=== PATIENT | male | born 1930 | race Caucasian/White ===

== ENCOUNTER 2017-04-26 05:30 | Inpatient (IN) | payer MEDICARE ==
[2017-04-26] VITALS (14 sets, daily range): BP systolic 120–227; BP diastolic 62–130; PULSE 76–103; RESP 20; TEMP 98.2–99.3; O2SAT 90–98
[2017-04-26] MEDS ORDERED: RESP: ALBUTEROL 2.5 MG/IPRATROPIUM 0.5 MG NEB (SCH) INH ONE (05:45)
[2017-04-26] MEDS ORDERED: SODIUM CHLORIDE 0.9% FLUSH 10 ML FLUSH IVF PRN (05:45)
[2017-04-26] MEDS ORDERED: NITROGLYCERIN 2% OINT 1 GM PACKET TOPICAL ONE (05:45)
[2017-04-26] MEDS: SODIUM CHLOR 0.9% 1000 ML INJ 1,000 ML IV SCH ×2 (05:49→17:40)
--- NOTE | 2017-04-26 05:51 | PD ---
HPI Chief Complaint: Respiratory Symptoms Time Seen by Provider: 05:37 Travel History International Travel<30 days: No Contact w/Intl Traveler<30days: No Traveled to known affect area: No History of Present Illness HPI 86-year-old male presents to the emergency department by EMS transport from local residence for evaluation of shortness of breath. Patient denies any fever. Patient states she has been treated for bronchitis 6 weeks with worsening symptoms today. Patient reports very congested cough but unable to cough up any sputum until this morning after forceful coughing noted some patel brown sputum. Patient had no fever or chills. Patient denies any chest pain or abdominal pain or flank pain. Patient is status post abdominal aortic aneurysm repair 2 years ago has history of hypertension and dyslipidemia. Patient states he has very high blood pressure each morning but after taking his medications for blood pressure management his blood pressure typically runs 110 over something. Patient had no lower extremity pain or swelling. Patient denies any calf pain. No history of clotting disorder. Patient takes aspirin daily. Patient recently traveled here from [place]. Pain 0/10. PFSH Past Medical History Narrative Medical Hypertension dyslipidemia bronchitis abdominal aortic aneurysm repair; no tobacco use; nursing notes reviewed Social History Tobacco Use: No Allergies-Medications (Allergen,Severity, Reaction): Coded Allergies: Sulfa (Sulfonamide Antibiotics) (Verified Allergy, Unknown, 04/26/17) Reported Meds & Prescriptions Reported Meds & Active Scripts Active Reported Isosorbide Dinitrate 30 Mg Tab 30 Mg PO DAILY Hydralazine (Hydralazine HCl) 100 Mg Tab 50 Mg PO BID Take with meals Furosemide 40 Mg Tab 40 Mg PO DAILY Carvedilol 12.5 Mg Tab 12.5 Mg PO BID Simvastatin 10 Mg Tab 10 Mg PO DAILY Aspirin 81 Mg Chew 81 Mg CHEW DAILY Narrative Medication Isosorbide hydralazine breo lasix carvedilol simvastatin Review of Systems Except as stated in HPI: all other systems reviewed are Neg General / Constitutional: No: Fever, Chills HENT: No: Congestion Cardiovascular: No: Chest Pain or Discomfort Respiratory: Positive: Cough, Shortness of Breath Gastrointestinal: No: Nausea, Vomiting, Abdominal Pain Genitourinary: No: Flank Pain Musculoskeletal: No: Myalgias, Arthralgias Skin: No Rash Neurologic: No: Weakness Psychiatric: No: Anxiety Endocrine: No: Heat Intolerance Hematologic/Lymphatic: No: Easy Bruising Physical Exam Narrative GENERAL: Well-developed well-nourished elderly male in no acute respiratory distress with marked hypertension SKIN: Warm and dry. HEAD: Normocephalic. EYES: No scleral icterus. No injection or drainage. NECK: Supple, trachea midline. No JVD or lymphadenopathy. CARDIOVASCULAR: Regular rate and rhythm without murmurs, gallops, or rubs. RESPIRATORY: Breath sounds equal bilaterally with rhonchi right middle and lower lobes. No accessory muscle use. GASTROINTESTINAL: Abdomen soft, non-tender, nondistended. MUSCULOSKELETAL: No cyanosis, or edema. BACK: Nontender without obvious deformity. No CVA tenderness. Data Data Last Documented VS Vital Signs Date Time Temp Pulse Resp B/P (MAP) Pulse Ox O2 Delivery O2 Flow Rate FiO2 04/26/17 07:31 101 20 92 Nasal Cannula 2.00 04/26/17 07:30 98.9 178/85 (116) Orders Orders Complete Blood Count With Diff (04/26/17 05:37) Basic Metabolic Panel (Bmp) (04/26/17 05:37) B-Type Natriuretic Peptide (04/26/17 05:37) Act Partial Throm Time (Ptt) (04/26/17 05:37) Prothrombin Time / Inr (Pt) (04/26/17 05:37) Magnesium (Mg) (04/26/17 05:37) Ckmb (Isoenzyme) Profile (04/26/17 05:37) Troponin I (04/26/17 05:37) Influenzae A/B Antigen (04/26/17 05:37) Blood Culture (04/26/17 05:37) Iv Access Insert/Monitor (04/26/17 05:37) Electrocardiogram (04/26/17 05:37) Ecg Monitoring (04/26/17 05:37) Oximetry (04/26/17 05:37) Oxygen Administration (04/26/17 05:37) Chest, Single Ap (04/26/17 05:37) Ct Pulmonary Angiogram (04/26/17 05:37) Sodium Chloride 0.9% Flush (Ns Flush) (04/26/17 05:45) Albuterol-Ipratropium Neb (Duoneb Neb) (04/26/17 05:45) Sputum Culture And Gram Stain (04/26/17 05:37) Sodium Chlor 0.9% 1000 Ml Inj (Ns 1000 M (04/26/17 05:45) Nitroglycerin 2% Oint (Nitroglycerin 2% (04/26/17 05:45) Ceftriaxone Inj (Rocephin Inj) (04/26/17 06:00) Azithromycin Inj (Zithromax Inj) (04/26/17 06:00) Labetalol Inj (Trandate Inj) (04/26/17 06:45) Furosemide Inj (Lasix Inj) (04/26/17 06:45) Iohexol 350 Inj (Omnipaque 350 Inj) (04/26/17 07:01) Urinary Catheter Insert/Apply (04/26/17 07:04) Oseltamivir (Tamiflu) (04/26/17 07:45) Aspirin Chew (Aspirin Chew) (04/26/17 07:45) Admit Order (Ed Use Only) (04/26/17 ) Floor Service Worker Spring / Telemetry MALIA.Q8H (04/26/17 07:34) Diet Heart Healthy (04/26/17 Breakfast) Activity Oob With Assistance (04/26/17 07:34) Notify Dr: Other (04/26/17 07:34) Labs Laboratory Tests Test 04/26/17 05:55 White Blood Count 4.2 TH/MM3 Red Blood Count 2.58 MIL/MM3 Hemoglobin 8.9 GM/DL Hematocrit 27.9 % Mean Corpuscular Volume 108.0 FL Mean Corpuscular Hemoglobin 34.6 PG Mean Corpuscular Hemoglobin Concent 32.0 % Red Cell Distribution Width 15.3 % Platelet Count 181 TH/MM3 Mean Platelet Volume 9.0 FL Neutrophils (%) (Auto) 48.2 % Lymphocytes (%) (Auto) 33.1 % Monocytes (%) (Auto) 18.1 % Eosinophils (%) (Auto) 0.2 % Basophils (%) (Auto) 0.4 % Neutrophils # (Auto) 2.0 TH/MM3 Lymphocytes # (Auto) 1.4 TH/MM3 Monocytes # (Auto) 0.8 TH/MM3 Eosinophils # (Auto) 0.0 TH/MM3 Basophils # (Auto) 0.0 TH/MM3 CBC Comment DIFF FINAL Differential Comment Prothrombin Time 11.3 SEC Prothromb Time International Ratio 1.1 RATIO Activated Partial Thromboplast Time 25.1 SEC Blood Urea Nitrogen 19 MG/DL Creatinine 1.20 MG/DL Random Glucose 111 MG/DL Calcium Level 8.4 MG/DL Magnesium Level 2.3 MG/DL Sodium Level 139 MEQ/L Potassium Level 3.9 MEQ/L Chloride Level 105 MEQ/L Carbon Dioxide Level 29.3 MEQ/L Anion Gap 5 MEQ/L Estimat Glomerular Filtration Rate 57 ML/MIN Total Creatine Kinase 67 U/L Troponin I LESS THAN 0.02 NG/ML B-Type Natriuretic Peptide 389 PG/ML MDM Medical Decision Making Medical Screen Exam Complete: Yes Emergency Medical Condition: Yes Medical Record Reviewed: Yes Interpretation(s) EKG: Normal sinus rhythm rate 94 left atrial enlargement QS inferiorly age- indeterminate no acute ST elevation marked artifact present at baseline Influenza a/b ag: (A+) CT pulmonary angiogram: CONCLUSION: 1. No evidence of pulmonary embolism. 2. Bilateral patchy subsegmental airspace disease and central airway disease most characteristic of bronchitis and peribronchial pneumonia. Followup until clearing recommended to exclude possible underlying mass. 3. Bilateral pleural thickening worse on the right. 4. Moderate cardiomegaly. Leobardo Avila MD on April 26, 2017 at 7:18 Board Certified Radiologist. This report was verified electronically. CBC & BMP Diagram 04/26/17 05:55 Calcium Level 8.4 L, Magnesium Level 2.3 Vital Signs Date Time Temp Pulse Resp B/P (MAP) Pulse Ox O2 Delivery O2 Flow Rate FiO2 04/26/17 07:16 103 20 181/101 (127) 92 Nasal Cannula 2.00 04/26/17 06:51 92 20 192/100 (130) 92 04/26/17 06:23 94 20 92 Nasal Cannula 2.00 04/26/17 06:21 88 20 207/94 (131) 94 04/26/17 06:11 84 Nasal Cannula 2.00 04/26/17 06:11 94 20 207/84 (125) 94 Nasal Cannula 2.00 04/26/17 05:55 92 20 227/130 (162) 92 04/26/17 05:47 96 Nasal Cannula 2.00 Differential Diagnosis Cough, pneumonia, bronchitis, CHF, PE, ACS, PR, dissection, influenza Narrative Course Patient administer DuoNeb updraft maintenance IV fluids Nitropaste 1 inch to chest wall applied chest x-ray ordered EKG performed shows sinus rhythm without acute ST elevation or injury pattern QS noted inferiorly age-indeterminate. Patient administered Nitropaste to chest wall with some improvement of blood pressure as well as labetalol 10 mg IV Flu test is positive patient given Tamiflu as well as Rocephin and azithromycin for community-acquired pneumonia Chest x-ray shows patchy infiltrate and some vascular congestion with cardiomegaly Cardiac enzymes troponin I and CK are found to be in normal range with elevation of the BMP Patient has a total white cell count of 4200 consistent with influenza diagnosis however also noted to have some anemia Patient sent for CT pulmonary angiogram and negative for PE but consistent with patchy peribronchial pneumonia Patient's case discussed with on-call physician Dr. Dick who accepts patient for admission Patient and family aware of lab results diagnosis and plan for admission. Physician Communication Physician Communication call placed to [facility] Diagnosis Primary Impression: Influenza A Additional Impressions: CHF (congestive heart failure) Qualified Codes: I50.9 - Heart failure, unspecified HTN (hypertension) Qualified Codes: I10 - Essential (primary) hypertension Peribronchial pneumonia Anemia Admitting Information Admitting Physician Requests: Admit Eliana Fontenot MD Apr 26, 2017 05:51
[2017-04-26] MEDS ORDERED: cefTRIAXone INJ 2,000 MG in SODIUM CHLORIDE 0.9% INJ 100 ML IV ONE (06:00)
[2017-04-26] MEDS ORDERED: AZITHROMYCIN INJ 500 MG in SODIUM CHLOR 0.9% 250 ML INJ 250 ML IV ONE (06:00)
[2017-04-26 06:10] LABS: BASOPHIL % 0.4 % (0.0-2.0); EOSINOPHIL % 0.2 % (0.0-4.0); HEMATOCRIT 27.9 % (39.0-51.0); HEMOGLOBIN 8.9 GM/DL (13.0-17.0); LYMPH % 33.1 % (9.0-44.0); LYMPHOCYTE # 1.4 TH/MM3 (1.0-4.8); MEAN CORPUSCULAR HEMOGLOBIN 34.6 PG (27.0-34.0); MONO % 18.1 % (0.0-8.0); MONOCYTE # 0.8 TH/MM3 (0-0.9); NEUT % 48.2 % (16.0-70.0); PLATELET COUNT 181 TH/MM3 (150-450); RED BLOOD COUNT 2.58 MIL/MM3 (4.50-5.90); RED CELL DISTRIBUTION WIDTH 15.3 % (11.6-17.2); WHITE BLOOD COUNT 4.2 TH/MM3 (4.0-11.0)
[2017-04-26 06:21] LABS: CHLORIDE 105 MEQ/L (98-107); SODIUM (NA) 139 MEQ/L (136-145)
[2017-04-26 06:24] LABS: BICARBONATE 29.3 MEQ/L (21.0-32.0); BLOOD UREA NITROGEN 19 MG/DL (7-18); CALCIUM 8.4 MG/DL (8.5-10.1); GLUCOSE,RANDOM 111 MG/DL (74-106); MAGNESIUM 2.3 MG/DL (1.5-2.5)
[2017-04-26 06:25] LABS: INTERNATIONAL NORMALIZED RATIO 1.1 RATIO; PROTHROMBIN TIME - PATIENT 11.3 SEC (9.8-11.6)
[2017-04-26 06:28] LABS: GLOMERULAR FILTRATION RATE 57 ML/MIN (>89)
[2017-04-26 06:32] LABS: TROPONIN I LESS THAN 0.02 NG/ML (0.02-0.05)
[2017-04-26] MEDS ORDERED: SIMV10TA PO (06:43)
[2017-04-26] MEDS ORDERED: CARV12.52 PO (06:43)
[2017-04-26] MEDS ORDERED: ISOS30TA17 PO (06:43)
[2017-04-26] MEDS ORDERED: FURO40TA PO (06:43)
[2017-04-26] MEDS ORDERED: HYDR-3801 PO (06:43)
[2017-04-26] MEDS ORDERED: ASPI-516 CHEW (06:43)
[2017-04-26] MEDS ORDERED: LABETALOL HCL 100 MG/20 ML VIAL IV PUSH ONE (06:45)
[2017-04-26] MEDS ORDERED: FUROSEMIDE 40 MG/4 ML VIAL IV PUSH ONE (06:45)
--- NOTE | 2017-04-26 06:45 | RADRPT ---
EXAM DATE/TIME: 04/26/2017 06:09 [facility] COMPARISON: No previous studies available for comparison. INDICATIONS : Shortness of breath starting today MEDICAL HISTORY : Cardiovascular disease. Hypertension SURGICAL HISTORY : None. ENCOUNTER: Initial ACUITY: 1 day PAIN SCORE: 0/10 LOCATION: Bilateral chest FINDINGS: Mild cardiomegaly. There is some patchy infiltrates in the left perihilar region without consolidati on. Both hemidiaphragms are well delineated. The upper lungs are clear. CONCLUSION: Patchy non-consolidative infiltrates in the left infrahilar region. Saqib Lees MD on April 26, 2017 at 6:43 Board Certified Radiologist. This report was verified electronically.
[2017-04-26] MEDS ORDERED: IOHEXOL 350 MG/ML 10 ML VIAL (for RAD DIAG) IVCONTRAST ONE (07:01)
--- NOTE | 2017-04-26 07:26 | RADRPT ---
EXAM DATE/TIME: 04/26/2017 06:57 [facility] COMPARISON: No previous studies available for comparison. INDICATIONS : Shortness of breath; rule out pulmonary embolus. IV CONTRAST: 75 cc Omnipaque 350 (iohexol) IV RADIATION DOSE: 20.08 CTDIvol (mGy) MEDICAL HISTORY : None SURGICAL HISTORY : None. ENCOUNTER: Initial ACUITY: 1 day PAIN SCALE: 0/10 LOCATION: chest TECHNIQUE: Volumetric scanning of the chest was performed using a pulmonary embolism protocol MIP images were re constructed. Using automated exposure control and adjustment of the mA and/or kV according to patien t size, radiation dose was kept as low as reasonably achievable to obtain optimal diagnostic quality images. DICOM format image data is available electronically for review and comparison. Follow-up recommendations for detected pulmonary nodules are based at a minimum on nodule size and pa tient risk factors according to Fleischner Society Guidelines. FINDINGS: PULMONARY ARTERIES: No filling defects are seen in the pulmonary arteries through the segmental level. LUNGS: Significant central airway disease with peribronchial thickening and opacity are noted. There are pat sergio subsegmental airspace opacities throughout both lungs PLEURAE: Bilateral pleural thickening is identified. There is lobulated pleural thickening along the right lat eral and posterior pleural margins which measures up to 11 mm in thickness. MEDIASTINUM: The heart is moderately enlarged. Mild coronary calcification is noted. There is no evidence of mass or lymphadenopathy. MUSCULOSKELETAL: No acute bony abnormality. MISCELLANEOUS: The visualized upper abdominal organs demonstrate no acute abnormality. CONCLUSION: 1. No evidence of pulmonary embolism. 2. Bilateral patchy subsegmental airspace disease and central airway disease most characteristic of b ronchitis and peribronchial pneumonia. Followup until clearing recommended to exclude possible underl goldie mass. 3. Bilateral pleural thickening worse on the right. 4. Moderate cardiomegaly. Leobardo Avila MD on April 26, 2017 at 7:18 Board Certified Radiologist. This report was verified electronically.
[2017-04-26] MEDS ORDERED: OSELTAMIVIR PHOSPHATE 75 MG CAP PO ONE (07:45)
[2017-04-26] MEDS ORDERED: ASPIRIN 81 MG CHEW TAB CHEW ONE (07:45)
[2017-04-26] MEDS ORDERED: NALOXONE HCL 0.4 MG/ML AMP IV PUSH PRN (08:00)
[2017-04-26] MEDS ORDERED: SODIUM CHLORIDE 0.9% FLUSH 10 ML FLUSH IV FLUSH PRN (08:00)
[2017-04-26] MEDS ORDERED: SENNOSIDES 8.6 MG TAB PO PRN (08:00)
[2017-04-26] MEDS ORDERED: ONDANSETRON HCL 4 MG/2 ML VIAL IVP PRN (08:00)
[2017-04-26] MEDS ORDERED: ACETAMINOPHEN 325 MG TAB PO PRN (08:00)
[2017-04-26] MEDS: HEPARIN SODIUM - SQ 10,000 UNITS/ML VIAL SQ SCH ×3 (08:34→23:21)
[2017-04-26] MEDS: PRAVASTATIN SOD 20 MG TAB PO SCH (09:25)
[2017-04-26] MEDS: CARVEDILOL 12.5 MG TAB PO SCH ×2 (09:26→19:58)
[2017-04-26] MEDS: hydrALAZINE HCL 50 MG TAB PO SCH ×2 (09:26→19:58)
[2017-04-26] MEDS: SODIUM CHLORIDE 0.9% FLUSH 10 ML FLUSH IV FLUSH SCH ×2 (09:26→19:57)
[2017-04-26] MEDS: ISOSORBIDE DINITRATE 10 MG TAB PO SCH (11:33)
--- NOTE | 2017-04-26 11:33 | EKG ---
Date Performed: 04/26/2017 Time Performed: 05:41:11 PTAGE: 86 years EKG: Sinus rhythm POSSIBLE LEFT ATRIAL ENLARGEMENT INFERIOR MYOCARDIAL INFARCTION ABNORMAL ECG NO PREVIOUS TRACING Baseline artifact. DOCTOR: Thania Sawyer Interpretating Date/Time 04/26/2017 11:33:07
--- NOTE | 2017-04-26 15:50 | HHI.HP ---
HPI Service [facility] Primary Care Physician Non-Staff Admission Diagnosis influenza; peribroancial pneumonia; chf; htn Diagnoses: Chief Complaint: Shortness of breath Travel History International Travel<30 Days: No Contact w/Intl Traveler <30 Da: No Traveled to Known Affected Are: No History of Present Illness Patient is a 86-year-old gentleman with a history of coronary artery disease and COPD. He came to visit [place] about a week ago from [place]. Patient reports increased dyspnea shortness of breath over the last 3 days. For the last 24 hours he has had inability to breathe and called 911. He says his symptoms improved immediately when the 911 team gave him oxygen as well as a nebulized bronchodilator. He did come to the emergency room was found to have elevated blood pressure of the diet since he has been on vacation and has been eating things most irregular. Before he left [place] had a flu test because he had some episodes of bronchitis and shortness of breath. He reports it was negative. In our emergency room he has tested positive for the flu. Patient has been started on Tamiflu and admitted to the hospital for further evaluation due to respiratory insufficiency with uncontrolled hypertension requiring IV antihypertensives and for management of the fluid. He has also been diuresed due to cardiac symptoms consistent with pulmonary vascular congestion. Review of Systems Constitutional: DENIES: Diaphoretic episodes, Fatigue, Fever, Weight gain, Weight loss, Chills, Dizziness, Change in appetite, Night Sweats Endocrine: DENIES: Heat/cold intolerance, Polydipsia, Polyuria, Polyphagia Eyes: DENIES: Blurred vision, Diplopia, Eye inflammation, Eye pain, Vision loss , Photosensitivity, Double Vision Ears, nose, mouth, throat: DENIES: Tinnitus, Hearing loss, Vertigo, Nasal discharge, Oral lesions, Throat pain, Hoarseness, Ear Pain, Running Nose, Epistaxis, Sinus Pain, Toothache, Odynophagia Respiratory: COMPLAINS OF: Cough, Sputum production, Shortness of breath, DENIES: Apneas, Snoring, Wheezing, Hemoptysis Cardiovascular: DENIES: Chest pain, Palpitations, Syncope, Dyspnea on Exertion , PND, Lower Extremity Edema, Orthopnea, Claudication Gastrointestinal: DENIES: Abdominal pain, Black stools, Bloody stools, Constipation, Diarrhea, Nausea, Vomiting, Difficulty Swallowing, Anorexia Genitourinary: DENIES: Sexual dysfunction, Urinary frequency, Urinary incontinence, Urgency, Hematuria, Dysuria, Nocturia, Penile Discharge, Testicular Pain, Testicular Swelling Musculoskeletal: DENIES: Joint pain, Muscle aches, Stiffness, Joint Swelling, Back pain, Neck pain Integumentary: DENIES: Abnormal pigmentation, Nail changes, Pruritus, Rash Hematologic/lymphatic: DENIES: Bruising, Lymphadenopathy Immunologic/allergic: DENIES: Eczema, Urticaria Neurologic: DENIES: Abnormal gait, Headache, Localized weakness, Paresthesias, Seizures, Speech Problems, Tremor, Poor Balance Psychiatric: DENIES: Anxiety, Confusion, Mood changes, Depression, Hallucinations, Agitation, Suicidal Ideation, Homicidal Ideation, Delusions Except as stated in HPI: all other systems reviewed are Neg Past Family Social History Past Medical History Congestive heart failure COPD Coronary artery disease with stent Hyperlipidemia Hypertension Past Surgical History Bilateral inguinal hernia repair Aortic aneurysm repair and graft Cardiac stent TURP Reported Medications Reviewed in the EMR, recent antibiotics Allergies: Coded Allergies: Sulfa (Sulfonamide Antibiotics) (Verified Allergy, Unknown, 04/26/17) Active Ordered Medications Reviewed in the EMR Family History Mother from stroke in her 90s, father at a young age from abdominal aneurysm rupture Social History No current tobacco alcohol, he quit over 25 years ago but has [id number] history Visiting from [place] and is Denies alcohol dependency Physical Exam Vital Signs Vital Signs Date Time Temp Pulse Resp B/P (MAP) Pulse Ox O2 Delivery O2 Flow Rate FiO2 04/26/17 12:00 99.3 76 20 120/62 (81) 94 04/26/17 10:00 84 04/26/17 08:43 86 20 140/81 (100) 92 Nasal Cannula 2.00 04/26/17 08:05 81 20 152/71 (98) 92 Nasal Cannula 2.00 04/26/17 07:31 101 20 92 Nasal Cannula 2.00 04/26/17 07:30 98.9 89 20 178/85 (116) 92 Nasal Cannula 2.00 04/26/17 07:16 103 20 181/101 (127) 92 Nasal Cannula 2.00 04/26/17 06:51 92 20 192/100 (130) 92 04/26/17 06:23 94 20 92 Nasal Cannula 2.00 04/26/17 06:21 88 20 207/94 (131) 94 04/26/17 06:11 84 Nasal Cannula 2.00 04/26/17 06:11 94 20 207/84 (125) 94 Nasal Cannula 2.00 04/26/17 05:55 92 20 227/130 (162) 92 04/26/17 05:47 96 Nasal Cannula 2.00 Physical Exam GENERAL: This is a well-nourished, well-developed patient, somewhat short of breath with exertion SKIN: No rashes, ecchymoses or lesions. Cool and dry. HEAD: Atraumatic. Normocephalic. No temporal or scalp tenderness. EYES: Pupils equal round and reactive. Extraocular motions intact. No scleral icterus. No injection or drainage. ENT: Nose without bleeding, purulent drainage or septal hematoma. Throat without erythema, tonsillar hypertrophy or exudate. Uvula midline. Airway patent. NECK: Trachea midline. No JVD or lymphadenopathy. Supple, nontender, no meningeal signs. CARDIOVASCULAR: Regular rate and rhythm without murmurs, gallops, or rubs. RESPIRATORY: Clear to auscultation. Breath sounds equal bilaterally. No wheezes , rales, or rhonchi. GASTROINTESTINAL: Abdomen soft, non-tender, nondistended. No hepato-splenomegaly , or palpable masses. No guarding. MUSCULOSKELETAL: Extremities without clubbing, cyanosis, or edema. No joint tenderness, effusion, or edema noted. No calf tenderness. Negative Homans sign bilaterally. NEUROLOGICAL: Awake and alert. Cranial nerves II through XII intact. Motor and sensory grossly within normal limits. Five out of 5 muscle strength in all muscle groups. Normal speech. Laboratory Laboratory Tests Test 04/26/17 05:55 White Blood Count 4.2 Red Blood Count 2.58 Hemoglobin 8.9 Hematocrit 27.9 Mean Corpuscular Volume 108.0 Mean Corpuscular Hemoglobin 34.6 Mean Corpuscular Hemoglobin Concent 32.0 Red Cell Distribution Width 15.3 Platelet Count 181 Mean Platelet Volume 9.0 Neutrophils (%) (Auto) 48.2 Lymphocytes (%) (Auto) 33.1 Monocytes (%) (Auto) 18.1 Eosinophils (%) (Auto) 0.2 Basophils (%) (Auto) 0.4 Neutrophils # (Auto) 2.0 Lymphocytes # (Auto) 1.4 Monocytes # (Auto) 0.8 Eosinophils # (Auto) 0.0 Basophils # (Auto) 0.0 CBC Comment DIFF FINAL Differential Comment Prothrombin Time 11.3 Prothromb Time International Ratio 1.1 Activated Partial Thromboplast Time 25.1 Blood Urea Nitrogen 19 Creatinine 1.20 Random Glucose 111 Calcium Level 8.4 Magnesium Level 2.3 Sodium Level 139 Potassium Level 3.9 Chloride Level 105 Carbon Dioxide Level 29.3 Anion Gap 5 Estimat Glomerular Filtration Rate 57 Total Creatine Kinase 67 Troponin I LESS THAN 0.02 B-Type Natriuretic Peptide 389 Date/Time Source Procedure Growth Status 04/26/17 05:55 Blood Peripheral Aerobic Blood Culture Pending Received 04/26/17 05:55 Blood Peripheral Anaerobic Blood Culture Pending Received 04/26/17 05:55 Nasal Washing Influenza Types A,B Antigen (ABE) - Final Positive For Flu A Antigen Complete Result Diagram: 04/26/1755 04/26/1755 Imaging Last Impressions Chest X-Ray 04/26/17536 Signed Impressions: Service Date/Time: Wednesday, April 26, 2017 06:09 - CONCLUSION: Patchy non-consolidative infiltrates in the left infrahilar region. Saqib Lees MD CT Angiography 04/26/17536 Signed Impressions: Service Date/Time: Wednesday, April 26, 2017 06:57 - CONCLUSION: 1. No evidence of pulmonary embolism. 2. Bilateral patchy subsegmental airspace disease and central airway disease most characteristic of bronchitis and peribronchial pneumonia. Followup until clearing recommended to exclude possible underlying mass. 3. Bilateral pleural thickening worse on the right. 4. Moderate cardiomegaly. Leobardo Avila MD Assessment and Plan Problem List: (1) Influenza A ICD Code: J10.1 - Influenza due to other identified influenza virus with other respiratory manifestations Status: Acute Plan: Continue Tamiflu, supportive care with oxygen as needed (2) HTN (hypertension) ICD Code: I10 - Essential (primary) hypertension Status: Acute Plan: Uncontrolled requiring IV antihypertensives Currently improved on home medications (3) CHF (congestive heart failure) ICD Code: I50.9 - Heart failure, unspecified Status: Acute Plan: Status post diuresis with Lasix, will continue to follow electrolytes Patient education for dietary nonadherence reinforced with the patient and family (4) Peribronchial pneumonia ICD Code: J18.0 - Bronchopneumonia, unspecified organism Status: Acute Plan: Continue [facility] Physician Certification 2 Midnight Certification Type: Admission for Inpatient Services Order for Inpatient Services The services are ordered in accordance with Medicare regulations or non- Medicare payer requirements, as applicable. In the case of services not specified as inpatient-only, they are appropriately provided as inpatient services in accordance with the 2-midnight benchmark. Estimated LOS (days): 2 2 days is the estimated time the patient will need to remain in the hospital, assuming treatment plan goals are met and no additional complications. Post-Hospital Plan: Home Problem Qualifiers (1) HTN (hypertension): Qualified Codes: I10 - Essential (primary) hypertension (2) CHF (congestive heart failure): Qualified Codes: I50.9 - Heart failure, unspecified Tara Dick MD Apr 26, 2017 15:50
[2017-04-26] MEDS ORDERED: LEVOFLOXACIN 500 MG PREMIX INJ 100 ML IV SCH (17:00)
[2017-04-26] MEDS: FUROSEMIDE 40 MG/4 ML VIAL IV PUSH SCH (18:48)
[2017-04-26] MEDS: OSELTAMIVIR PHOSPHATE 75 MG CAP PO SCH (19:58)
[2017-04-26] MEDS ORDERED: diphenhydrAMINE HCL 25 MG CAP PO ONE (21:30)
[2017-04-27] VITALS (10 sets, daily range): BP systolic 76–168; BP diastolic 41–84; PULSE 73–88; RESP 16–20; TEMP 96.8–98; O2SAT 92–97
[2017-04-27] MEDS: SODIUM CHLOR 0.9% 1000 ML INJ 1,000 ML IV SCH (06:28)
[2017-04-27 07:43] LABS: HEMATOCRIT 24.6 % (39.0-51.0); MEAN CELL VOLUME 108.7 FL (80.0-100.0); MEAN CORPUSCULAR HEMOGLOBIN 35.1 PG (27.0-34.0); MEAN CORPUSCULAR HGB CONC 32.3 % (32.0-36.0); MEAN PLATELET VOLUME 9.1 FL (7.0-11.0); PLATELET COUNT 165 TH/MM3 (150-450); RED BLOOD COUNT 2.27 MIL/MM3 (4.50-5.90); RED CELL DISTRIBUTION WIDTH 15.1 % (11.6-17.2)
[2017-04-27 07:56] LABS: BICARBONATE 29.3 MEQ/L (21.0-32.0); CALCIUM 8.2 MG/DL (8.5-10.1)
[2017-04-27 08:00] LABS: CREATININE 1.2 MG/DL (0.60-1.30)
[2017-04-27] MEDS: HEPARIN SODIUM - SQ 10,000 UNITS/ML VIAL SQ SCH (08:00)
[2017-04-27 08:40] LABS: BANDS 6 % (0-6); BLASTS 1 % (0-0); LYMPHOCYTES 58 % (9-44); METAMYELOCYTES 1 % (0-1); MONOCYTES 13 % (0-8); NEUTROPHIL # MANUAL DIFF 1.1 TH/MM3 (1.8-7.7); POLYS (SEG NEUTROPHILS) 21 % (16-70)
[2017-04-27] MEDS: FUROSEMIDE 40 MG/4 ML VIAL IV PUSH SCH (09:00)
[2017-04-27] MEDS: SODIUM CHLORIDE 0.9% FLUSH 10 ML FLUSH IV FLUSH SCH (09:00)
[2017-04-27] MEDS ORDERED: ASPIRIN 81 MG CHEW TAB CHEW SCH (09:00)
[2017-04-27] MEDS: CARVEDILOL 12.5 MG TAB PO SCH (10:22)
[2017-04-27] MEDS: hydrALAZINE HCL 50 MG TAB PO SCH (10:22)
[2017-04-27] MEDS: ISOSORBIDE DINITRATE 10 MG TAB PO SCH (10:22)
[2017-04-27] MEDS: PRAVASTATIN SOD 20 MG TAB PO SCH (10:22)
[2017-04-27] MEDS: OSELTAMIVIR PHOSPHATE 75 MG CAP PO SCH (10:22)
[2017-04-27] MEDS ORDERED: SODIUM CHLORID 0.9% 500 ML INJ 500 ML IV ONE (11:45)
--- NOTE | 2017-04-27 12:06 | HHI.PR ---
Subjective Remarks Patient seen and evaluated today in follow-up for her congestive heart failure exacerbation with transient respiratory failure and hypertensive urgency. Patient has done well with diuresis. He does appear to be hypotensive the day after medications were given. Patient has some somnolence which occurred with a blood pressure of 80/46. The family was at the bedside and said this has occurred multiple times while at home or [place]. They have spoken with her primary care doctor regarding adjusting his medications. Objective Vitals Vital Signs Date Time Temp Pulse Resp B/P (MAP) Pulse Ox O2 Delivery O2 Flow Rate FiO2 04/27/17 11:50 76/41 (53) 04/27/17 11:20 98.0 80/50 (60) 04/27/17 09:03 97.1 75 18 168/78 (108) 92 04/27/17 07:40 97 Nasal Cannula 2.00 04/27/17 04:00 97.0 75 20 150/68 (95) 93 04/27/17 00:00 96.8 78 20 130/62 (84) 93 04/26/17 20:00 98.2 79 20 177/82 (113) 95 04/26/17 20:00 84 04/26/17 19:30 98 Nasal Cannula 2.00 04/26/17 16:00 98.8 80 20 136/67 (90) 90 I/O 04/26/17 04/26/17 04/26/17 04/27/17 04/27/17 04/27/17 07:00 15:00 23:00 07:00 15:00 23:00 Intake Total 990 ml Output Total 1300 ml 1000 ml Balance -310 ml -1000 ml Intake Oral 480 ml IV Total 510 ml Output Urine Total 1300 ml 1000 ml # Voids 8 # Bowel Movements 1 0 Result Diagram: 04/27/1762204/27/17622 Imaging Last Impressions Chest X-Ray 04/26/17536 Signed Impressions: Service Date/Time: Wednesday, April 26, 2017 06:09 - CONCLUSION: Patchy non-consolidative infiltrates in the left infrahilar region. Saqib Lees MD CT Angiography 04/26/17536 Signed Impressions: Service Date/Time: Wednesday, April 26, 2017 06:57 - CONCLUSION: 1. No evidence of pulmonary embolism. 2. Bilateral patchy subsegmental airspace disease and central airway disease most characteristic of bronchitis and peribronchial pneumonia. Followup until clearing recommended to exclude possible underlying mass. 3. Bilateral pleural thickening worse on the right. 4. Moderate cardiomegaly. Leobardo Avila MD Objective Remarks GENERAL: This is a well-nourished, well-developed patient, patient hypotensive after medication administration. Previous to that he was ambulatory in the hallway and passes walk study without difficulty CARDIOVASCULAR: Regular rate and rhythm without murmurs, gallops, or rubs. RESPIRATORY: Clear to auscultation. Breath sounds equal bilaterally. No wheezes , rales, or rhonchi. GASTROINTESTINAL: Abdomen soft, non-tender, nondistended. Normal active bowel sounds MUSCULOSKELETAL: Extremities without clubbing, cyanosis, or edema. NEURO: Alert & Oriented x4 to person, place, time, situation. Moves all ext x4 A/P Problem List: (1) Influenza A ICD Code: J10.1 - Influenza due to other identified influenza virus with other respiratory manifestations Status: Acute Plan: Continue Tamiflu, supportive care with oxygen as needed (2) HTN (hypertension) ICD Code: I10 - Essential (primary) hypertension Status: Acute Plan: Today he is hypotensive significantly with symptoms. His blood pressure is 76/40 after his blood pressure medications are given. Previously patient was quite hypertensive. Family says that this happens frequently when his blood pressure drops after his medications and he goes to sleep. Patient reports no chest pain or shortness of breath. He was slightly dizzy prior to his sleeping. Discussed with the family regarding blood pressure medications may be too much for him. (3) CHF (congestive heart failure) ICD Code: I50.9 - Heart failure, unspecified Status: Acute Plan: Status post diuresis with Lasix, will continue to follow electrolytes Patient education for dietary nonadherence reinforced with the patient and family (4) Peribronchial pneumonia ICD Code: J18.0 - Bronchopneumonia, unspecified organism Status: Acute Plan: Continue Levaquin PO Discharge Planning Pending improvement later today patient may be discharged home otherwise we will keep the patient and continue to monitor his blood pressure Problem Qualifiers (1) HTN (hypertension): Qualified Codes: I10 - Essential (primary) hypertension (2) CHF (congestive heart failure): Qualified Codes: I50.9 - Heart failure, unspecified Kapil,Tara Rosa Maria MD Apr 27, 2017 12:06
[2017-04-27] MEDS ORDERED: OSEL75 PO (12:08)
[2017-04-27] MEDS ORDERED: HYDR-3801 PO (14:40)
--- NOTE | 2017-04-27 14:40 | HHI.DCPOC ---
Discharge Care Plan Diagnosis: (1) CHF (congestive heart failure) (2) HTN (hypertension) (3) Influenza A (4) Peribronchial pneumonia Goals to Promote Your Health * To prevent worsening of your condition and complications * To maintain your health at the optimal level Directions to Meet Your Goals Take your medications as prescribed Follow your dietary instruction Follow activity as directed Keep your appointments as scheduled Take your immunizations and boosters as scheduled If your symptoms worsen call your PCP, if no PCP go to Urgent Care Center or Emergency Room Smoking is Dangerous to Your Health. Avoid second hand smoke Call the 24-hour hour crisis hotline for domestic abuse at Tara Dick MD Apr 27, 2017 14:40
[2017-04-27] MEDS ORDERED: LEVA500T33 PO (14:41)
== END 2017-04-27 16:09 | disposition home or self-care (01) | DRG 291 ==
LOC: PHED 05:30 → PHEDA 07:35 → PH3B 08:40
PROVIDERS: ADMIT Hospitalist; ATTEND Hospitalist
DX: I11.0 Hypertensive heart disease with heart failure (principal); J10.08 Influenza due to other identified influenza virus with other specified pneumonia; J96.90 Respiratory failure, unspecified, unspecified whether with hypoxia or hypercapnia; I95.89 Other hypotension; J18.0 Bronchopneumonia, unspecified organism; J44.0 Chronic obstructive pulmonary disease with (acute) lower respiratory infection; I50.9 Heart failure, unspecified; I16.0 Hypertensive urgency; D64.9 Anemia, unspecified; E78.5 Hyperlipidemia, unspecified; I25.10 Atherosclerotic heart disease of native coronary artery without angina pectoris; Z87.891 Personal history of nicotine dependence; Z88.2 Allergy status to sulfonamides; Z95.5 Presence of coronary angioplasty implant and graft
CPT/HCPCS: 71045; 71275; 80048; 82550; 83735; 83880; 84484; 85007; 85025; 85027; 85610; 85730; 87040; 87070; 87077; 87186; 87205; 87804; 93005; 94150; 94618; 94664; 96365; 96375; J0456; J0696; J1644; J1940; J1956; J7030; J7040; J7050; Q9967